=== PATIENT | female | born 1965 | race American Indian/Alaskan Native ===

== ENCOUNTER 2023-07-04 11:46 | Day surgery (SDC) | payer MEDICAID ==
[2023-06-30 17:13] LABS: BASOPHILS # (AUTO) 0.1 X10'3 (0-0.2); BASOPHILS % (AUTO) 0.9 % (0-1); EOSINOPHILS # (AUTO) 0.1 X10'3 (0-0.9); EOSINOPHILS % (AUTO) 1.6 % (0-6); HEMATOCRIT 40.8 % (35.0-45.0); HEMOGLOBIN 13.8 g/dl (12.0-16.0); LYMPHOCYTES # (AUTO) 2.5 X10'3 (1.1-4.8); LYMPHOCYTES % (AUTO) 28.6 % (21-51); MEAN CORPUSCULAR HEMOGLOBIN 30.3 PG (27.0-31.0); MEAN CORPUSCULAR HGB CONC 33.9 g/dL (33.0-36.5); MEAN CORPUSCULAR VOLUME 89.5 FL (78-98); MEAN PLATELET VOLUME 9.2 FL (7.4-10.4); MONOCYTES # (AUTO) 0.7 X10'3 (0-0.9); MONOCYTES % (AUTO) 8.2 % (2-12); NEUTROPHILS # (AUTO) 5.2 X10'3 (1.8-7.7); NEUTROPHILS % (AUTO) 60.7 % (42-75); PLATELET COUNT 220 X10'3 (140-440); RED BLOOD COUNT 4.56 X10'6 (4.20-5.60); RED CELL DISTRIBUTION WIDTH 13.7 % (11.5-14.5); WHITE BLOOD COUNT 8.6 X10'3 (4.5-11.0)
[2023-06-30 17:25] LABS: PROTHROMBIN TIME 11.1 SECONDS (9.0-12.0)
[2023-06-30 17:26] LABS: APTT 35 SECONDS (22-32)
[2023-06-30 17:30] LABS: ANION GAP 8 (8-16); BLOOD UREA NITROGEN 25 MG/DL (7-18); BUN/CREATININE RATIO 26.9 (10.0-20.0); CALCIUM 9.4 MG/DL (8.5-10.1); CHLORIDE 106 MMOL/L (99-107); CHOLESTEROL 144 MG/DL (0-200); CREATININE 0.93 MG/DL (0.40-0.90); GLUCOSE 108 MG/DL (70-104); HDL CHOLESTEROL 71 MG/DL (35-60); LDL CHOLESTEROL 57 MG/DL (50-100); POTASSIUM 3.2 MMOL/L (3.5-5.1); SODIUM 139 MMOL/L (135-145); TOTAL CARBON DIOXIDE 24.6 MMOL/L (24-32); TRIGLYCERIDES 47 MG/DL (20-135); eGFR 62 ML/MIN
[2023-07-04] VITALS (9 sets, daily range): BP systolic 114–140; BP diastolic 63–82; PULSE 50–67; RESP 16; TEMP 99.7; O2SAT 96–100
[~2023-07-04] VITALS: Ht 160 cm; Wt 57.8 kg
[2023-07-04] MEDS ORDERED: diphenhydrAMINE 25mg capsule PO PRN (12:05)
[2023-07-04] MEDS ORDERED: LORazepam 0.5 MG tablet PO PRN (12:05)
[2023-07-04] MEDS ORDERED: normal saline 1,000 ML IV SCH (12:05)
[2023-07-04] MEDS ORDERED: ROSU40TA22 PO (12:09)
[2023-07-04] MEDS ORDERED: ASPI-1397 PO (12:09)
[2023-07-04] MEDS ORDERED: LOSA25TA41 PO (12:09)
[2023-07-04] MEDS ORDERED: CARV6.253 PO (12:09)
[2023-07-04] MEDS ORDERED: CLOP75TA34 PO (12:09)
[2023-07-04] MEDS ORDERED: NITR0.4T51 SL (12:09)
[2023-07-04] MEDS ORDERED: midazolam 1 mg/ML 2ml injection ONE ×2 (12:57→14:02)
[2023-07-04] MEDS ORDERED: LIDOcaine 1% 30ml preserv. free vial ONE (12:57)
[2023-07-04] MEDS ORDERED: fentaNYL/PF 50MCG/1 ML 2ML syringe ONE (12:57)
[2023-07-04] MEDS ORDERED: iohexol 350MG/ML 100ml bottle IV ONE (12:57)
[2023-07-04] MEDS ORDERED: heparin 1,000unit/ml 10ml vial 10 ML ONE (12:57)
[2023-07-04] MEDS ORDERED: verapamil 2.5 mg/ml inj IV ONE (12:57)
[2023-07-04] MEDS ORDERED: nitroGLYCERIN 500mcg/5mL D5W 5 ML IV ONE (12:58)
[2023-07-04] MEDS ORDERED: potassium Cl 20 mEq SR tablet PO STA (13:17)
[2023-07-04] MEDS ORDERED: proCHLORperazine 10 MG/2 ml inj IV PRN (14:40)
[2023-07-04] MEDS ORDERED: nitroGLYCERIN 0.4mg SUBLingual tab SL PRN (14:40)
[2023-07-04] MEDS ORDERED: HYDROcodone/acetaminophen 10/325mg tab PO PRN (14:40)
[2023-07-04] MEDS ORDERED: ondansetron/PF 4mg/2ml inj IV PRN (14:40)
[2023-07-04] MEDS ORDERED: OXAZEpam 15mg capsule PO PRN (14:40)
[2023-07-04] MEDS ORDERED: HYDROcodone/acetaminophen 5mg/325mg tablet PO PRN (14:40)
== END 2023-07-04 17:20 | disposition home or self-care (01) ==
LOC: SSTAY O 11:46
PROVIDERS: ATTEND Student in an Organized Health Care Education/Training Program
DX: I25.118 Atherosclerotic heart disease of native coronary artery with other forms of angina pectoris (principal); I11.0 Hypertensive heart disease with heart failure; I50.9 Heart failure, unspecified; E78.5 Hyperlipidemia, unspecified; I25.2 Old myocardial infarction; F17.210 Nicotine dependence, cigarettes, uncomplicated; I70.203 Unspecified atherosclerosis of native arteries of extremities, bilateral legs; I65.29 Occlusion and stenosis of unspecified carotid artery; Z95.5 Presence of coronary angioplasty implant and graft; Z79.01 Long term (current) use of anticoagulants; Z79.899 Other long term (current) drug therapy; Z88.8 Allergy status to other drugs, medicaments and biological substances
CPT/HCPCS: 36415; 80048; 80061; 85025; 85610; 85730; 93005; 93454; 99152; J1644; J2250; J3010; J3490; J7030; Q0163; Q9967; 84132; 99153; A6258; A6402; C1751; C1894

== ENCOUNTER 2023-07-22 09:55 | Inpatient (IN) | payer MEDICAID ==
[~2023-07-22] VITALS: Ht 160 cm; Wt 59.1 kg
[~2023-07-22 09:55] MED LIST: ASPI-1397 PO; CARV6.253 PO; CLOP75TA34 PO; LOSA25TA41 PO; NITR0.4T51 SL; ROSU40TA22 PO
[2023-07-22] MEDS ORDERED: aspirin 81mg tab.chew PO ONE (10:00)
--- NOTE | 2023-07-22 10:16 | NUR ---
Patient received in room 4.
--- NOTE | 2023-07-22 10:16 | NUR ---
states patient hit her head when she fell. Notified Md of head strike. New orders given for CT head scan.
[2023-07-22 10:39] LABS: BASOPHILS # (AUTO) 0.1 X10'3 (0-0.2); BASOPHILS % (AUTO) 0.8 % (0-1); EOSINOPHILS # (AUTO) 0.1 X10'3 (0-0.9); EOSINOPHILS % (AUTO) 1.2 % (0-6); HEMATOCRIT 41.4 % (35.0-45.0); HEMOGLOBIN 14.3 g/dl (12.0-16.0); LYMPHOCYTES # (AUTO) 1.8 X10'3 (1.1-4.8); LYMPHOCYTES % (AUTO) 24.1 % (21-51); MEAN CORPUSCULAR HEMOGLOBIN 30.9 PG (27.0-31.0); MEAN CORPUSCULAR HGB CONC 34.4 g/dL (33.0-36.5); MEAN CORPUSCULAR VOLUME 89.9 FL (78-98); MEAN PLATELET VOLUME 9.6 FL (7.4-10.4); MONOCYTES # (AUTO) 0.4 X10'3 (0-0.9); MONOCYTES % (AUTO) 4.9 % (2-12); NEUTROPHILS # (AUTO) 5.2 X10'3 (1.8-7.7); PLATELET COUNT 207 X10'3 (140-440); RED CELL DISTRIBUTION WIDTH 13.5 % (11.5-14.5); WHITE BLOOD COUNT 7.5 X10'3 (4.5-11.0)
[2023-07-22 10:44] LABS: ALANINE AMINOTRANSFERASE 36 U/L (12-78); ALBUMIN 3.9 G/DL (3.4-5.0); ALBUMIN/GLOBULIN RATIO 1.3 (1.1-1.5); ALKALINE PHOSPHATASE 80 IU/L (46-116); ANION GAP 9 (8-16); ASPARTATE AMINO TRANSFERASE 27 U/L (10-37); BILIRUBIN,TOTAL 0.4 MG/DL (0.1-1.0); BLOOD UREA NITROGEN 22 MG/DL (7-18); BUN/CREATININE RATIO 19.1 (10.0-20.0); CALCIUM 9.6 MG/DL (8.5-10.1); CHLORIDE 105 MMOL/L (99-107); CREATININE 1.15 MG/DL (0.40-0.90); GLUCOSE 131 MG/DL (70-104); POTASSIUM 3.5 MMOL/L (3.5-5.1); SODIUM 138 MMOL/L (135-145); TOTAL CARBON DIOXIDE 23.8 MMOL/L (24-32); eCRCL 44 ML/MIN; eGFR 48 ML/MIN
[2023-07-22 10:47] LABS: ALANINE AMINOTRANSFERASE 35 U/L (12-78); ALBUMIN 3.9 G/DL (3.4-5.0); ALBUMIN/GLOBULIN RATIO 1.3 (1.1-1.5); ALKALINE PHOSPHATASE 78 IU/L (46-116); ANION GAP 10 (8-16); ASPARTATE AMINO TRANSFERASE 24 U/L (10-37); BILIRUBIN,TOTAL 0.5 MG/DL (0.1-1.0); BLOOD UREA NITROGEN 22 MG/DL (7-18); BUN/CREATININE RATIO 18.5 (10.0-20.0); CALCIUM 9.5 MG/DL (8.5-10.1); CHLORIDE 105 MMOL/L (99-107); CREATININE 1.19 MG/DL (0.40-0.90); GLUCOSE 132 MG/DL (70-104); POTASSIUM 3.6 MMOL/L (3.5-5.1); SODIUM 139 MMOL/L (135-145); TOTAL CARBON DIOXIDE 23.9 MMOL/L (24-32); TOTAL PROTEIN 6.9 G/DL (6.4-8.2); eCRCL 42 ML/MIN; eGFR 46 ML/MIN
[2023-07-22 10:53] LABS: MAGNESIUM 2.2 MG/DL (1.5-2.4); PRO BRAIN NATRIURETIC PEPTIDE 1011 PG/ML (0-125)
[2023-07-22 10:59] LABS: D-DIMER 0.41 MG/L FEU (0-0.50)
[2023-07-22] MEDS ORDERED: nitroGLYCERIN 1gm ointment UD TP ONE (11:05)
[2023-07-22] MEDS ORDERED: normal saline 1000ml 1,000 ML IV ONE (11:05)
--- NOTE | 2023-07-22 12:10 | NUR ---
Pt resting with at bedside. No needs at this time.
[2023-07-22] MEDS ORDERED: nitroGLYCERIN 0.4mg SUBLingual tab SL SCH (12:50)
[2023-07-22] MEDS ORDERED: mag hydrox/Alum hydrox/simeth 30ml oral suspension PO PRN (12:55)
[2023-07-22] MEDS ORDERED: magnesium 4gm in 100ml NS 100 ML IV PRN (12:55)
[2023-07-22] MEDS ORDERED: ondansetron/PF 4mg/2ml inj IV PRN (12:55)
[2023-07-22] MEDS ORDERED: metoprolol tartrate 1mg/ml inj IV PRN (12:55)
[2023-07-22] MEDS ORDERED: regadenoson 0.4mg/5ml syringe IV PRN (12:55)
[2023-07-22] MEDS ORDERED: PERFLUTREN PROTEIN-A MICROSPHR (Optison) 0.22 MG/ML 3ML VIAL IV ONE (12:55)
[2023-07-22] MEDS ORDERED: magnesium 2GM in 50ml NS 50 ML IV PRN (12:55)
[2023-07-22] MEDS ORDERED: bisacodyl 10mg suppository rectal RC PRN (12:55)
[2023-07-22] MEDS ORDERED: magnesium hydroxide 30ml (MOM) UD suspension PO PRN (12:55)
[2023-07-22] MEDS ORDERED: potassium Cl 20 mEq SR tablet PO PRN ×2 (12:55)
[2023-07-22] MEDS ORDERED: acetaminophen 650mg rectal suppository RC PRN (12:55)
[2023-07-22] MEDS ORDERED: diphenhydrAMINE 25mg capsule PO PRN (12:55)
[2023-07-22] MEDS ORDERED: aminophylline 250mg/10ml inj. IV PRN (12:55)
[2023-07-22] MEDS ORDERED: potassium Cl 40MEQ/1/2NS 520ml 520 ML IV PRN (12:55)
[2023-07-22] MEDS ORDERED: nitroGLYCERIN 0.4mg SUBLingual tab SL PRN (12:55)
[2023-07-22] MEDS ORDERED: magnesium Cl slow-release 64mg tablet PO PRN (12:55)
[2023-07-22] MEDS ORDERED: acetaminophen 325mg tablet PO PRN ×2 (12:55)
[2023-07-22] MEDS: normal saline 1000ml 1,000 ML IV SCH (13:46)
--- NOTE | 2023-07-22 14:20 | NUR ---
Hospitalist at bedside speaking with patient and spouce.
--- NOTE | 2023-07-22 14:30 | NUR ---
Patient ate a sandwich for lunch.
[2023-07-22 15:14] LABS: HEMOGLOBIN A1C 5.2 % (4.5-6.2)
--- NOTE | 2023-07-22 15:34 | NUR ---
Patient walking to P with IV pole.
--- NOTE | 2023-07-22 15:43 | NUR ---
Pt back from the bathroom and up walking around in room. UA sent to lab. No needs at this time.
[2023-07-22 15:56] LABS: BILIRUBIN,URINE NEGATIVE (Neg); CLARITY,URINE CLEAR (Clear); COLOR,URINE YELLOW (Yellow); GLUCOSE, URINE NEGATIVE (Neg); KETONES,URINE NEGATIVE (Neg); LEUKOCYTE ESTERASE ,URINE NEGATIVE (Neg); NITRITES, URINE NEGATIVE (Neg); OCCULT BLOOD,URINE NEGATIVE (Neg); PROTEIN,URINE NEGATIVE (Neg); UROBILINOGEN,URINE 0.2 E.U/dL (0.2-1.0)
[2023-07-22 15:58] LABS: UA COLLECTION TYPE CLN CATCH MIDSTREAM
[2023-07-22 15:59] LABS: URINE AMPHETAMINE SCREEN NEGATIVE (Neg); URINE BARBITUATE SCREEN NEGATIVE (Neg); URINE BENZODIAZEPINES SCREEN NEGATIVE (Neg); URINE COCAINE SCREEN POSITIVE (Neg); URINE METHADONE SCREEN NEGATIVE (Neg)
[2023-07-22 16:00] LABS: URINE CANNABINOID SCREEN NEGATIVE (Neg); URINE OPIATE SCREEN NEGATIVE (Neg); URINE PHENCYCLIDINE SCREEN NEGATIVE (Neg)
--- NOTE | 2023-07-22 16:10 | NUR ---
Patient in room U 3028. I have received report from Mayh CHAU and had the opportunity to ask questions and assume patient care. Pt settled into room.Call light in reach. No chest pain.NTG paste giving pt SAMUELS. Addendum: 07/22/23 at 1703 by Letha Gonzalez RN Amended: Links added.
[2023-07-22 16:20] VITALS: BP 132/69; PULSE 69; RESP 16; TEMP 98.1; O2SAT 100
[2023-07-22 16:25] VITALS: RESP 16; O2SAT 100
--- NOTE | 2023-07-22 18:26 | NUR ---
Problems reprioritized. Patient report given, questions answered & plan of care reviewed with Elva CHAU. Addendum: 07/22/23 at 1827 by Letha Gonzalez RN Amended: Links added.
--- NOTE | 2023-07-22 18:30 | NUR ---
Patient in room PCU 3028. I have received report from WILI and had the opportunity to ask questions and assume patient care.
[2023-07-22 19:00] VITALS: BP 132/69; PULSE 39; RESP 16; TEMP 98.1; O2SAT 100
[2023-07-22] MEDS: K and/or MAG REPLACEMENT MC SCH (20:00)
[2023-07-22] MEDS: docusate sod 100mg capsule PO SCH (20:00)
[2023-07-22] MEDS: carvedilol 6.25mg tablet PO SCH (20:31)
[2023-07-22] MEDS: heparin, porcine 5000 units/ml vial SQ SCH (20:32)
[2023-07-22] MEDS ORDERED: ROSUVASTATIN CALCIUM 5 MG TABLET PO SCH (21:00)
[2023-07-22 22:00] VITALS: BP 102/62; PULSE 65; RESP 16; TEMP 99.5; O2SAT 98
[2023-07-23] VITALS (15 sets, daily range): BP systolic 115–137; BP diastolic 60–78; PULSE 54–87; RESP 14–19; TEMP 97.7–98.2; O2SAT 95–100
[2023-07-23] MEDS: normal saline 1000ml 1,000 ML IV SCH ×2 (01:09→15:35)
[2023-07-23 05:02] LABS: BASOPHILS # (AUTO) 0.1 X10'3 (0-0.2); BASOPHILS % (AUTO) 0.9 % (0-1); EOSINOPHILS # (AUTO) 0.2 X10'3 (0-0.9); EOSINOPHILS % (AUTO) 2.4 % (0-6); HEMATOCRIT 37.6 % (35.0-45.0); HEMOGLOBIN 12.9 g/dl (12.0-16.0); LYMPHOCYTES # (AUTO) 3.2 X10'3 (1.1-4.8); LYMPHOCYTES % (AUTO) 32.6 % (21-51); MEAN CORPUSCULAR HGB CONC 34.3 g/dL (33.0-36.5); MEAN CORPUSCULAR VOLUME 90.3 FL (78-98); MEAN PLATELET VOLUME 10.1 FL (7.4-10.4); MONOCYTES # (AUTO) 0.9 X10'3 (0-0.9); NEUTROPHILS # (AUTO) 5.4 X10'3 (1.8-7.7); NEUTROPHILS % (AUTO) 55.1 % (42-75); PLATELET COUNT 164 X10'3 (140-440); RED BLOOD COUNT 4.16 X10'6 (4.20-5.60); RED CELL DISTRIBUTION WIDTH 13.8 % (11.5-14.5); WHITE BLOOD COUNT 9.8 X10'3 (4.5-11.0)
[2023-07-23 05:10] LABS: ALBUMIN 3.4 G/DL (3.4-5.0); ANION GAP 9 (8-16); BLOOD UREA NITROGEN 22 MG/DL (7-18); BUN/CREATININE RATIO 26.5 (10.0-20.0); CALCIUM 8.7 MG/DL (8.5-10.1); CHLORIDE 109 MMOL/L (99-107); CHOLESTEROL 151 MG/DL (0-200); CREATININE 0.83 MG/DL (0.40-0.90); GLUCOSE 96 MG/DL (70-104); HDL CHOLESTEROL 77 MG/DL (35-60); LDL CHOLESTEROL 56 MG/DL (50-100); MAGNESIUM 1.9 MG/DL (1.5-2.4); PHOSPHORUS 3.7 MG/DL (2.3-4.5); POTASSIUM 4.1 MMOL/L (3.5-5.1); SODIUM 139 MMOL/L (135-145); TOTAL CARBON DIOXIDE 20.6 MMOL/L (24-32); TRIGLYCERIDES 47 MG/DL (20-135); eCRCL 60 ML/MIN; eGFR 70 ML/MIN
--- NOTE | 2023-07-23 06:09 | NUR ---
Problems reprioritized. Patient report given, questions answered & plan of care reviewed with
--- NOTE | 2023-07-23 06:23 | NUR ---
Patient in room PCU 3028. I have received report from TIFFANIE CHAU and had the opportunity to ask questions and assume patient care.
[2023-07-23] MEDS: K and/or MAG REPLACEMENT MC SCH (08:00)
[2023-07-23] MEDS ORDERED: aspirin 81mg, enteric-coated 1 TAB TABLET.DR PO SCH (08:00)
[2023-07-23] MEDS ORDERED: clopidogrel 75mg tablet PO SCH (08:00)
[2023-07-23] MEDS: docusate sod 100mg capsule PO SCH (08:00)
[2023-07-23] MEDS ORDERED: losartan 25mg tablet PO SCH (08:00)
[2023-07-23] MEDS: heparin, porcine 5000 units/ml vial SQ SCH (08:04)
[2023-07-23] MEDS: carvedilol 6.25mg tablet PO SCH (08:05)
[2023-07-23] MEDS ORDERED: pneumococcal 23-VAL P-sac vacc 25 mcg/0.5ml vial IMVAC ONE (10:00)
--- NOTE | 2023-07-23 14:27 | NUR ---
MD CAME TO GIVE RESULTS OF TERESA SCAN TO PT. MD TOLD PT. THERE IS SOMETHING VERY IMPORTANT TO TALK ABOUT, AND ASKED IF SHE WANTS HER TO LEAVE THE ROOM OR NOT. PT. DID ASK SPOUSE TO LEAVE ROOM WHILE TOLD PT. ABOUT THE POSITIVE COCAINE AND THE DANGERS ASSOCIATED WITH IT CONCERNING THE HEART.
--- NOTE | 2023-07-23 15:52 | NUR ---
pt. alert, orientated, and stable upon discharge. pt. iv canula whole and intact upon removal. pt. educated on heart failure and drugs and worsening symptoms including chest pain. pt. safely escorted into private vehicle with spouse. pt. educated to follow up with brick stacker.
== END 2023-07-23 15:50 | disposition home or self-care (01) | DRG 198 ==
LOC: ER 09:56 → ED HOLD 12:56 → PCU 3S 16:08
PROVIDERS: ADMIT Family Medicine; ATTEND Family Medicine
PROC: 4A02XM4 Measurement of Cardiac Total Activity, External Approach (ICD-10-PCS; principal; 2023-07-23)
PROC: 3E033HZ Introduction of Radioactive Substance into Peripheral Vein, Percutaneous Approach (ICD-10-PCS; 2023-07-23)
DX: I25.119 Atherosclerotic heart disease of native coronary artery with unspecified angina pectoris (principal); N17.9 Acute kidney failure, unspecified; S09.90XA Unspecified injury of head, initial encounter; I50.9 Heart failure, unspecified; I11.0 Hypertensive heart disease with heart failure; E78.00 Pure hypercholesterolemia, unspecified; F17.210 Nicotine dependence, cigarettes, uncomplicated; R55 Syncope and collapse; F14.10 Cocaine abuse, uncomplicated; E78.5 Hyperlipidemia, unspecified; T38.3X6A Underdosing of insulin and oral hypoglycemic [antidiabetic] drugs, initial encounter; W18.39XA Other fall on same level, initial encounter; Y93.89 Activity, other specified; Y92.89 Other specified places as the place of occurrence of the external cause; Y99.8 Other external cause status; I25.2 Old myocardial infarction; Z88.6 Allergy status to analgesic agent; Z90.710 Acquired absence of both cervix and uterus; Z98.891 History of uterine scar from previous surgery; Z95.5 Presence of coronary angioplasty implant and graft; Z82.49 Family history of ischemic heart disease and other diseases of the circulatory system; Z79.82 Long term (current) use of aspirin; Z79.899 Other long term (current) drug therapy; Z71.6 Tobacco abuse counseling
CPT/HCPCS: 36415; 70450; 71045; 73080; 78452; 80048; 80053; 80061; 80305; 81003; 83036; 83735; 83880; 84100; 84484; 85025; 85379; 87081; 90732; 93017; 96360; 99285; A9500; J1644; J2785; J7030

== ENCOUNTER 2023-10-23 12:04 | Emergency (ER) | payer MEDICAID ==
[~2023-10-23] VITALS: Ht 160 cm; Wt 67.7 kg
[2023-10-23 12:23] LABS: BASOPHILS # (AUTO) 0.1 X10'3 (0-0.2); BASOPHILS % (AUTO) 1.4 % (0-1); EOSINOPHILS # (AUTO) 0.3 X10'3 (0-0.9); EOSINOPHILS % (AUTO) 4.9 % (0-6); HEMATOCRIT 43.2 % (35.0-45.0); HEMOGLOBIN 14.4 g/dl (12.0-16.0); LYMPHOCYTES # (AUTO) 2.2 X10'3 (1.1-4.8); LYMPHOCYTES % (AUTO) 30.9 % (21-51); MEAN CORPUSCULAR HEMOGLOBIN 29.5 PG (27.0-31.0); MEAN CORPUSCULAR HGB CONC 33.5 g/dL (33.0-36.5); MEAN CORPUSCULAR VOLUME 88.1 FL (78-98); MEAN PLATELET VOLUME 8.6 FL (7.4-10.4); MONOCYTES # (AUTO) 0.7 X10'3 (0-0.9); MONOCYTES % (AUTO) 9.8 % (2-12); NEUTROPHILS # (AUTO) 3.7 X10'3 (1.8-7.7); PLATELET COUNT 207 X10'3 (140-440); RED CELL DISTRIBUTION WIDTH 12.8 % (11.5-14.5)
[2023-10-23 12:28] VITALS: TEMP 97.8
[2023-10-23 12:34] LABS: ALANINE AMINOTRANSFERASE 29 U/L (12-78); ALBUMIN 3.9 G/DL (3.4-5.0); ALBUMIN/GLOBULIN RATIO 1.1 (1.1-1.5); ALKALINE PHOSPHATASE 95 IU/L (46-116); ANION GAP 11 (8-16); ASPARTATE AMINO TRANSFERASE 18 U/L (10-37); BILIRUBIN,TOTAL 0.4 MG/DL (0.1-1.0); BLOOD UREA NITROGEN 17 MG/DL (7-18); BUN/CREATININE RATIO 20.2 (10.0-20.0); CALCIUM 8.6 MG/DL (8.5-10.1); CHLORIDE 109 MMOL/L (99-107); CREATININE 0.84 MG/DL (0.40-0.90); GLUCOSE 81 MG/DL (70-104); POTASSIUM 4.2 MMOL/L (3.5-5.1); SODIUM 143 MMOL/L (135-145); TOTAL PROTEIN 7.6 G/DL (6.4-8.2); eCRCL 59 ML/MIN; eGFR 69 ML/MIN
[2023-10-23 12:44] LABS: PRO BRAIN NATRIURETIC PEPTIDE 121 PG/ML (0-125)
[2023-10-23 14:38] VITALS: BP 128/82; PULSE 61; RESP 17; O2SAT 98
== END 2023-10-23 15:10 | disposition home or self-care (01) ==
LOC: ER 12:04
DX: R07.9 Chest pain, unspecified (principal); I11.0 Hypertensive heart disease with heart failure; E78.00 Pure hypercholesterolemia, unspecified
CPT/HCPCS: 36415; 80053; 83880; 84484; 85025; 93005; 99284

== ENCOUNTER 2024-01-21 04:01 | Emergency (ER) | payer MEDICAID ==
[~2024-01-21] VITALS: Ht 160 cm; Wt 70.5 kg
[2024-01-21] MEDS: ibuprofen tablet 400 MG TABLET PO ONE (05:22)
[2024-01-21] MEDS: acetaminophen 325mg tablet PO ONE (05:22)
[2024-01-21] MEDS: dicyclomine 10 MG capsule PO ONE (05:22)
[2024-01-21 06:02] LABS: ALBUMIN 3.8 G/DL (3.4-5.0); ANION GAP 13 (8-16); BLOOD UREA NITROGEN 19 MG/DL (7-18); BUN/CREATININE RATIO 19.2 (10.0-20.0); CALCIUM 9.1 MG/DL (8.5-10.1); CHLORIDE 107 MMOL/L (99-107); CREATININE 0.99 MG/DL (0.40-0.90); GLUCOSE 113 MG/DL (70-104); LIPASE 143 U/L (16-77); POTASSIUM 3.8 MMOL/L (3.5-5.1); SODIUM 141 MMOL/L (135-145); eCRCL 50 ML/MIN; eGFR 57 ML/MIN
[2024-01-21 06:07] LABS: BASOPHILS # (AUTO) 0.1 X10'3 (0-0.2); BASOPHILS % (AUTO) 0.6 % (0-1); EOSINOPHILS # (AUTO) 0.2 X10'3 (0-0.9); EOSINOPHILS % (AUTO) 1.4 % (0-6); HEMATOCRIT 39.6 % (35.0-45.0); HEMOGLOBIN 13.3 g/dl (12.0-16.0); LYMPHOCYTES # (AUTO) 1.8 X10'3 (1.1-4.8); LYMPHOCYTES % (AUTO) 14.3 % (21-51); MEAN CORPUSCULAR HEMOGLOBIN 30.7 PG (27.0-31.0); MEAN CORPUSCULAR HGB CONC 33.6 g/dL (33.0-36.5); MEAN CORPUSCULAR VOLUME 91.3 FL (78-98); MEAN PLATELET VOLUME 9.3 FL (7.4-10.4); MONOCYTES # (AUTO) 0.9 X10'3 (0-0.9); MONOCYTES % (AUTO) 6.9 % (2-12); NEUTROPHILS # (AUTO) 9.9 X10'3 (1.8-7.7); NEUTROPHILS % (AUTO) 76.8 % (42-75); PLATELET COUNT 217 X10'3 (140-440); RED BLOOD COUNT 4.34 X10'6 (4.20-5.60); RED CELL DISTRIBUTION WIDTH 14.2 % (11.5-14.5); WHITE BLOOD COUNT 12.9 X10'3 (4.5-11.0)
[2024-01-21 06:46] LABS: BILIRUBIN,URINE NEGATIVE (Neg); CLARITY,URINE SLIGHTLY CLOUDY (Clear); COLOR,URINE YELLOW (Yellow); GLUCOSE, URINE NEGATIVE (Neg); KETONES,URINE NEGATIVE (Neg); LEUKOCYTE ESTERASE ,URINE TRACE (Neg); NITRITES, URINE NEGATIVE (Neg); OCCULT BLOOD,URINE LARGE (Neg); PH,URINE 5.5 (4.8-8.0); PROTEIN,URINE NEGATIVE (Neg); UROBILINOGEN,URINE 0.2 E.U/dL (0.2-1.0)
[2024-01-21 06:48] LABS: UA COLLECTION TYPE CLN CATCH MIDSTREAM
[2024-01-21 06:53] LABS: MUCUS STRANDS MODERATE /LPF (Neg); SQUAMOUS EPITHELIAL CELL,UR MANY /LPF (FEW)
[2024-01-21 06:54] LABS: RBC,URINE 20-50 /HPF (0-2)
[2024-01-21 06:57] LABS: BACTERIA,URINE 1+ /HPF (Neg); WBC,URINE 0-4 /HPF (0-4)
[2024-01-21] MEDS: normal saline 1000ML IV soln IVB ONE (07:20)
[2024-01-21] MEDS: ketorolac tromethamine 15mg/ml inj. IV ONE (07:21)
[2024-01-21 07:27] VITALS: BP 101/65; PULSE 70; RESP 12; TEMP 98.3; O2SAT 100
== END 2024-01-21 07:45 | disposition home or self-care (01) ==
LOC: ER 04:02
DX: N23 Unspecified renal colic (principal); Z88.8 Allergy status to other drugs, medicaments and biological substances; I25.10 Atherosclerotic heart disease of native coronary artery without angina pectoris; E78.00 Pure hypercholesterolemia, unspecified; I10 Essential (primary) hypertension; I25.2 Old myocardial infarction; Z98.890 Other specified postprocedural states; Z79.899 Other long term (current) drug therapy
CPT/HCPCS: 36415; 74176; 80048; 81001; 83690; 84145; 85025; 99284; J7030; 96360